=== PATIENT | male | born 1955 | race Caucasian/White ===

== ENCOUNTER 2022-07-10 10:43 | Inpatient (IN) | payer OTHER, MEDICAID ==
[~2022-07-10] VITALS: Ht 170.1 cm; Wt 78.5 kg
[2022-07-10] MEDS ORDERED: LEADER ASPIRIN325 MG PO (11:47)
[2022-07-10] MEDS ORDERED: DEPAKOTE SPRIN125 MG PO (11:51)
[2022-07-10] MEDS ORDERED: LOPRESSOR50 M1 PO (11:53)
[2022-07-10] MEDS ORDERED: LISINOPRIL30 MG PO (11:53)
[2022-07-10] MEDS ORDERED: PROTONIX TR40 M1 PO (11:54)
[2022-07-10] MEDS ORDERED: SODIUM CHLORIDE1 GM PO (11:55)
[2022-07-10] MEDS ORDERED: ZOLPIDEM TART5 MG PO (11:55)
[2022-07-10] MEDS ORDERED: TAMSULOSIN HCL0.4 MG PO (11:56)
[2022-07-10] MEDS ORDERED: OXYCODONE HCL10 M1 PO (11:58)
[2022-07-10] MEDS ORDERED: SPIRIVA -- 3018 MCG INH (11:59)
[2022-07-10 13:47] VITALS: BP 122/76
[2022-07-10 20:00] VITALS: BP 132/82
[2022-07-11 06:56] LABS: MEAN CELL VOLUME 95.1 fl (80.0-94.0); MEAN CORPUSCULAR HGB 33.2 pg (27.0-31.0); MEAN CORPUSCULAR HGB CONC 34.9 g/dl (33.0-37.0); MEAN PLATELET VOLUME 9.8 fl (9.6-12.3); PLATELET COUNT AUTOMATED 170 10*3/uL (130-400); RED BLOOD COUNT 4.31 10*6/uL (4.50-5.90); RED CELL DISTRI WIDTH 13.2 % (0-14.5); WHITE BLOOD COUNT 5.1 10*3/uL (4.8-10.8)
[2022-07-11 07:09] LABS: MANUAL DIFF REFLEX YES
[2022-07-11 07:16] LABS: ALKALINE PHOSPHATASE 54 U/L (45-117); BUN 16 mg/dl (7-24); CHLORIDE 105 mmol/L (98-107); CHOLESTEROL 160 mg/dL (<200); LDL CHOLESTEROL 85 mg/dL (9-159); POTASSIUM 3.9 mmol/L (3.5-5.1); SGOT/AST 30 IU/L (3-35); SGPT/ALT 42 U/L (12-78); SODIUM 138 mmol/L (136-145); TOTAL PROTEIN 6.6 gm/dL (6.4-8.2); TRIGLYCERIDES 109 mg/dl (<150)
[2022-07-11 07:38] VITALS: BP 145/80
[2022-07-11 07:57] LABS: VALPROIC ACID (DEPAKENE) 37.2 ug/ml (50-100)
[2022-07-11 08:12] LABS: VITAMIN D, 25-HYDROXY 41.5 ng/mL (30-100)
[2022-07-11 08:27] LABS: ATYPICAL LYMPHS 1 % (0-0); PLATELET SUFFICIENCY NORMAL (NORMAL); TOTAL CELLS COUNTED 100 #CELLS
[2022-07-11 13:30] LABS: BILIRUBIN Negative (Negative); BLOOD Negative (Negative); CLARITY Clear (Clear); COLOR Yellow (Yellow); GLUCOSE Negative (Negative); KETONE Trace (Negative); LEUKO ESTERASE Negative (Negative); NITRITE Negative (Negative); SPECIFIC GRAVITY 1.015 (1.001-1.030)
[2022-07-11 13:47] LABS: RBC 0-2 rbc/hpf (0-2); WBC 0-2 wbc/hpf (0-5)
[2022-07-11 20:00] VITALS: BP 135/78
[2022-07-12 07:36] VITALS: BP 156/79
[2022-07-12 20:00] VITALS: BP 138/72
[2022-07-13 07:17] VITALS: BP 160/95
[2022-07-13 20:00] VITALS: BP 148/90
[2022-07-14 07:54] VITALS: BP 158/82
[2022-07-14] MEDS ORDERED: RISPERIDONE1 MG PO (09:14)
[2022-07-14] MEDS ORDERED: DULOXETINE HCL60 MG PO (09:14)
[2022-07-14] MEDS ORDERED: MELATONIN5 M7 PO (09:14)
[2022-07-14 20:00] VITALS: BP 154/89
== END 2022-07-14 21:15 | disposition home or self-care (01) | DRG 885 ==
LOC: 3N 10:43
PROVIDERS: ADMIT Psychiatry & Neurology Psychiatry; ATTEND Psychiatry & Neurology Psychiatry
DX: F23 Brief psychotic disorder (principal); F33.9 Major depressive disorder, recurrent, unspecified; J44.9 Chronic obstructive pulmonary disease, unspecified; J32.9 Chronic sinusitis, unspecified; G89.29 Other chronic pain; M54.50 Low back pain, unspecified; K21.9 Gastro-esophageal reflux disease without esophagitis; I10 Essential (primary) hypertension; R73.03 Prediabetes; D75.89 Other specified diseases of blood and blood-forming organs; Z88.8 Allergy status to other drugs, medicaments and biological substances